=== PATIENT | male | born 1980 | race African-American/Black ===

== ENCOUNTER 2018-04-08 18:13 | Emergency (ER) | payer MEDICAID ==
[~2018-04-08] VITALS: Ht 160 cm; Wt 115.2 kg
[2018-04-08 18:56] VITALS: BP 112/64
== END 2018-04-08 21:13 | disposition left against medical advice (07) ==
LOC: ER 18:13
DX: H92.09 Otalgia, unspecified ear (principal); Z53.21 Procedure and treatment not carried out due to patient leaving prior to being seen by health care provider

== ENCOUNTER 2018-05-24 10:15 | Inpatient (IN) | payer MEDICAID ==
[~2018-05-24] VITALS: Ht 165.1 cm; Wt 113.4 kg
[2018-05-24] MEDS ORDERED: METHYLPREDNISOLONE SOD SUCC 125 MG/2 ML VIAL IV ONE (11:00)
[2018-05-24] MEDS ORDERED: PIPERACILLIN/TAZ 3.375G PREMIX 50 ML IV ONE (11:00)
[2018-05-24] MEDS ORDERED: VANCOMYCIN 1 G PREMIX 200 ML IV ONE (11:00)
[2018-05-24 11:51] LABS: BASOPHILS % 0.9 % (0.0-2.0); EOSINOPHILS % 0.5 % (0.0-5.0); HEMATOCRIT. 36.7 % (42.0-52.0); HEMOGLOBIN. 12.6 g/dL (14.0-18.0); LYMPHOCYTES % 23.1 % (20.0-50.0); MEAN CORPUSCULAR HEMOGLOBIN 35.8 pg (28.0-32.0); MEAN CORPUSCULAR VOLUME 104.2 fL (80.0-94.0); MEAN PLATELET VOLUME 7.9 fl (7.4-10.4); MONOCYTES % 9.3 % (2.0-8.0); NEUTROPHILS % 66.2 % (40.0-76.0); PLATELET 310 x1000/uL (130-400); RED BLOOD CELL COUNT 3.52 mill/uL (4.7-6.1); RED CELL DISTRIBUTION WIDTH 14.7 % (11.6-14.6)
[2018-05-24 11:53] LABS: PROTHROMBIN TIME 10.7 sec (9.4-11.6)
[2018-05-24 11:54] LABS: CHLORIDE 106 mEq/L (98-107)
[2018-05-24] MEDS ORDERED: IOHEXOL-300 100 ML BOTTLE ONE (15:01)
[2018-05-24] MEDS ORDERED: SODIUM CHLORIDE 0.9% 1,000 ML IV ONE (15:23)
[2018-05-24 16:56] VITALS: BP 111/58
[2018-05-24] MEDS ORDERED: HYDROCODONE/ACETAMINOPHEN 5/325MG TABLET PO PRN (18:00)
[2018-05-24] MEDS ORDERED: ACETAMINOPHEN 325MG TABLET PO PRN (18:00)
[2018-05-24] MEDS ORDERED: IPRATROPIUM/ALBUTEROL 0.5-3(2.5)MG/3ML NEB INH PRN (18:00)
[2018-05-24] MEDS ORDERED: LORAZEPAM 2MG/ML CPJ IV PRN (18:00)
[2018-05-24] MEDS ORDERED: DOCUSATE SODIUM 100MG CAPSULE PO PRN (18:00)
[2018-05-24] MEDS ORDERED: ONDANSETRON 4MG ODT PO PRN (18:15)
[2018-05-24] MEDS ORDERED: DEXT 5%/0.45% NACL 1000ML 1,000 ML IV SCH (18:15)
[2018-05-24 20:00] VITALS: BP 105/58
[2018-05-24] MEDS: METHYLPREDNISOLONE SOD SUCC 40 MG/ML VIAL IV SCH (21:15)
[2018-05-25] VITALS: BP 110/60
[2018-05-25 04:00] VITALS: BP 106/74
[2018-05-25 07:16] LABS: HEMATOCRIT. 37.4 % (42.0-52.0); HEMOGLOBIN. 12.7 g/dL (14.0-18.0); MEAN CORPUSCULAR HEMOGLOBIN 35.8 pg (28.0-32.0); MEAN CORPUSCULAR VOLUME 105.1 fL (80.0-94.0); MEAN PLATELET VOLUME 8.3 fl (7.4-10.4); PLATELET 346 x1000/uL (130-400); RED BLOOD CELL COUNT 3.56 mill/uL (4.7-6.1); RED CELL DISTRIBUTION WIDTH 14.6 % (11.6-14.6)
[2018-05-25 07:32] LABS: CHLORIDE 104 mEq/L (98-107)
[2018-05-25 08:00] VITALS: BP 108/63
[2018-05-25] MEDS: METHYLPREDNISOLONE SOD SUCC 40 MG/ML VIAL IV SCH (09:33)
[2018-05-25] MEDS ORDERED: AMOX-424 MT (11:38)
[2018-05-25 12:00] VITALS: BP 112/62
[2018-05-25 13:52] VITALS: BP 111/60
[2018-05-25 14:41] LABS: PLATELET ESTIMATE NORMAL
== END 2018-05-25 15:35 | disposition home or self-care (01) | DRG 133 ==
LOC: ER 11:47 → 5WST 15:21 → EDBEDREQ 15:24 → EDBEDREQSVC 15:24 → ENRESERV 15:41
PROVIDERS: ADMIT Internal Medicine; ATTEND Internal Medicine
DX: J96.00 Acute respiratory failure, unspecified whether with hypoxia or hypercapnia (principal); R65.10 Systemic inflammatory response syndrome (SIRS) of non-infectious origin without acute organ dysfunction; E44.0 Moderate protein-calorie malnutrition; Z68.41 Body mass index [BMI] 40.0-44.9, adult; J03.90 Acute tonsillitis, unspecified; E66.9 Obesity, unspecified; G47.33 Obstructive sleep apnea (adult) (pediatric); E05.90 Thyrotoxicosis, unspecified without thyrotoxic crisis or storm; I25.10 Atherosclerotic heart disease of native coronary artery without angina pectoris; D64.9 Anemia, unspecified; I25.2 Old myocardial infarction; Q90.9 Down syndrome, unspecified
CPT/HCPCS: 36415; 70491; 71045; 80048; 80053; 83605; 83880; 84484; 85025; 85610; 87040; 93005; 96365; 96375; 99285; J2543; J2920; J2930; J3370; J3490; J7030; Q9967